=== PATIENT | female | born 1995 | race Two or more races ===

== ENCOUNTER 2017-07-05 17:59 | Emergency (ER) | payer OTHER ==
[~2017-07-05] VITALS: Ht 152.4 cm; Wt 59.2 kg
[2017-07-05 18:01] VITALS: BP 110/74
[2017-07-05] MEDS ORDERED: LIDOCAINE-MPF 1%, 5ML ONE ×2 (18:12→19:22)
[2017-07-05] MEDS ORDERED: BACITRACIN ZINC OINT 500U/GM, 0.9 GM ONE (19:55)
== END 2017-07-05 20:10 ==
LOC: ED 20:00
DX: S61.215A Laceration without foreign body of left ring finger without damage to nail, initial encounter (principal); W20.8XXA Other cause of strike by thrown, projected or falling object, initial encounter; Y93.89 Activity, other specified; Y92.89 Other specified places as the place of occurrence of the external cause; Y99.8 Other external cause status
CPT/HCPCS: 12042; 99285